=== PATIENT | female | born 2000 ===

== ENCOUNTER 2019-03-06 16:03 | Emergency (ER) | payer BC, OTHER ==
[2019-03-06 18:06] LABS: ABS Eosinophils 0.1 10^3/ul (0-0.6); ABS Lymphocytes 1.7 10^3/ul (1.0-4.8); ABS Monocytes 0.9 10^3/ul (0-0.8); ABS Neutrophils 4.5 10^3/ul (1.5-7.7); Eosinophil % 1.6 %; Hematocrit 36 % (35-47); Hemoglobin 12.6 g/dL (12.0-16.0); Lymphocyte % 23.2 %; Mean Corpuscular HGB Conc 35 g/dL (31-36); Mean Corpuscular Hemoglobin 33 pg (27-31); Mean Corpuscular Volume 94 fL (80-97); Mean Platelet Volume 8.5 fL (7.4-10.4); Nucleated Red Blood Cells % 0.1; Platelet Count 163 10^3/uL (150-450); Red Cell Distribution Width 13 % (10-15); White Blood Count 7.2 10^3/uL (3.5-10.8)
[2019-03-06 18:24] LABS: ALT 16 U/L (7-52); AST 20 U/L (13-39); Albumin 4.2 g/dL (3.2-5.2); Albumin/Globulin Ratio 1.6 (1-3); Alkaline Phosphatase 57 U/L (34-104); Anion Gap 5 mmol/L (2-11); BUN/Creatinine Ratio 16.4 (8-20); Blood Urea Nitrogen 12 mg/dL (6-24); C Reactive Protein 42.83 mg/L (<8.01); CO2 Carbon Dioxide 26 mmol/L (22-32); Calcium 8.8 mg/dL (8.6-10.3); Chloride 107 mmol/L (101-111); EGFR Non-African American 101.6 (>60); Globulin 2.6 g/dL (2-4); Glucose 100 mg/dL (70-100); Potassium 3.9 mmol/L (3.5-5.0); Sodium 138 mmol/L (135-145); Total Protein 6.8 g/dL (6.4-8.9)
[2019-03-06 18:30] LABS: HCG Pregnancy < 0.60 mIU/mL
--- NOTE | 2019-03-06 18:38 | ED ---
Abdominal Pain/Female - HPI Summary HPI Summary: 18 year old F arriving via private car complains of severe non-radiating constant RLQ abdominal pain since Sunday03/01/2019. Patient reports fever 100.5F yesterday 03/05/2019 PM and intermittent decreased appetite. Went to [facility] today 03/06/2019 and was referred to the ED. Patient denies chills , erythema of eyes, sore throat, chest pain, shortness of breath, cough, nausea/ vomiting, dysuria, hematuria, myalgia, edema, rash, or dizziness. Symptoms rated 5/10 in severity. Symptoms aggravated by nothing. Symptoms alleviated by nothing. Medications reviewed. Allergies noted. No abdominal surgeries. No hx ovarian cysts. LNMP 02/09/2019. No FHx appendicitis. - History of Current Complaint Chief Complaint: EDAbdPain Stated Complaint: RIGHT SIDE ABDOMINAL PAIN PER PT Time Seen by Provider: 03/06/19 17:34 Hx Obtained From: Patient Onset/Duration: Lasting Days - 6, Still Present Timing: Constant Severity Currently: Moderate Pain Intensity: 5 Pain Scale Used: 0-10 Numeric Location: Discrete At: RLQ Radiates: No Aggravating Factor(s): Nothing Alleviating Factor(s): Nothing Associated Signs and Symptoms: Positive: Negative - chills, erythema of eyes, sore throat, chest pain, shortness of breath, cough, nausea/vomiting, dysuria, hematuria, myalgia, edema, rash, or dizziness, Other: - fever, decreased appetite Allergies/Adverse Reactions: Allergies Allergy/AdvReac Type Severity Reaction Status Date / Time No Known Allergies Allergy Verified 03/06/19 16:05 Home Medications: Home Medications NK [No Home Medications Reported] 03/06/19 [History Confirmed 03/06/19] PMH/Surg Hx/FS Hx/Imm Hx Endocrine/Hematology History: Denies: Hx Diabetes Cardiovascular History: Denies: Hx Hypertension, Hx Pacemaker/ICD History: Denies: Hx Renal Disease Sensory History: Denies: Hx Hearing Aid Psychiatric History: Denies: Hx Panic Disorder - Surgical History Surgery Procedure, Year, and Place: EAR TUBES CHILD. wisdom teeth Infectious Disease History: No Infectious Disease History: Denies: Traveled Outside the [place] in Last 30 Days - Family History Known Family History: Positive: Other - NEG: appendicitis - Social History Alcohol Use: None Substance Use Type: Reports: None Smoking Status (MU): Never Smoked Tobacco Review of Systems Positive: Fever. Negative: Chills Negative: Erythema Negative: Sore Throat Negative: Chest Pain Negative: Shortness Of Breath, Cough Positive: Abdominal Pain - RLQ, Other - decreased appetite. Negative: Vomiting , Nausea Negative: dysuria, hematuria Negative: Myalgia, Edema Negative: Rash Neurological: Negative - Dizziness All Other Systems Reviewed And Are Negative: Yes Physical Exam - Summary Physical Exam Summary: Constitutional: Well-developed, Well-nourished, Alert. (-) Distressed Skin: Warm, Dry HENT: Normocephalic; Atraumatic Eyes: Conjunctiva normal Neck: Musculoskeletal ROM normal neck. (-) JVD, (-) Stridor, (-) Tracheal deviation Cardio: Rhythm regular, rate normal, Heart sounds normal; Intact distal pulses; The pedal pulses are 2+ and symmetric. Radial pulses are 2+ and symmetric. (-) Murmur Pulmonary/Chest wall: Effort normal. (-) Respiratory distress, (-) Wheezes, (-) Rales Abd: Soft, suprapubic and RLQ tenderness, (-) Distension, (-) Guarding, (-) Rebound Musculoskeletal: (-) Edema Lymph: (-) Cervical adenopathy Neuro: Alert, Oriented x3 Psych: Mood and affect Normal Triage Information Reviewed: Yes Vital Signs On Initial Exam: Initial Vitals Temp Pulse Resp BP Pulse Ox 97.5 F 69 15 94/66 100 03/06/19 16:04 03/06/19 16:04 03/06/19 16:04 03/06/19 16:04 03/06/19 16:04 Vital Signs Reviewed: Yes Procedures - Sedation Patient Received Moderate/Deep Sedation with Procedure: No Diagnostics - Vital Signs Vital Signs Temp Pulse Resp BP Pulse Ox 03/06/19 16:04 97.5 F 69 15 94/66 100 - Laboratory Lab Results: Lab Results 03/06/19 03/06/19 03/06/19 Range/Units 17:59 17:59 17:59 WBC 7.2 (3.5-10.8) 10^3/uL RBC 3.80 (3.70-4.87) 10^6 /uL Hgb 12.6 (12.0-16.0) g/dL Hct 36 (35-47) % MCV 94 (80-97) fL MCH 33 H (27-31) pg MCHC 35 (31-36) g/dL RDW 13 (10-15) % Plt Count 163 (150-450) 10^3/uL MPV 8.5 (7.4-10.4) fL Neut % (Auto) 62.5 % Lymph % (Auto) 23.2 % Karnes % (Auto) 12.1 % Eos % (Auto) 1.6 % Baso % (Auto) 0.6 % Absolute Neuts (auto) 4.5 (1.5-7.7) 10^3/ul Absolute Lymphs (auto) 1.7 (1.0-4.8) 10^3/ul Absolute Monos (auto) 0.9 H (0-0.8) 10^3/ul Absolute Eos (auto) 0.1 (0-0.6) 10^3/ul Absolute Basos (auto) 0.0 (0-0.2) 10^3/ul Absolute Nucleated RBC 0.0 10^3/ul Nucleated RBC % 0.1 Sodium 138 (135-145) mmol/L Potassium 3.9 (3.5-5.0) mmol/L Chloride 107 (101-111) mmol/L Carbon Dioxide 26 (22-32) mmol/L Anion Gap 5 (2-11) mmol/L BUN 12 (6-24) mg/dL Creatinine 0.73 (0.51-0.95) mg/dL Est GFR ( Amer) 123.0 (>60) Est GFR (Non-Af Amer) 101.6 (>60) BUN/Creatinine Ratio 16.4 (8-20) Glucose 100 (70-100) mg/dL Lactic Acid 0.8 (0.5-2.0) mmol/L Calcium 8.8 (8.6-10.3) mg/dL Total Bilirubin 0.30 (0.2-1.0) mg/dL AST 20 (13-39) U/L ALT 16 (7-52) U/L Alkaline Phosphatase 57 (34-104) U/L C-Reactive Protein 42.83 H (<8.01) mg/L Total Protein 6.8 (6.4-8.9) g/dL Albumin 4.2 (3.2-5.2) g/dL Globulin 2.6 (2-4) g/dL Albumin/Globulin Ratio 1.6 (1-3) Lipase 11 (11.0-82.0) U/L Beta HCG, Quant < 0.60 mIU/mL Result Diagrams: 03/06/19 17:59 03/06/19 17:59 Lab Statement: Any lab studies that have been ordered have been reviewed, and results considered in the medical decision making process. Abdominal Pain Fem Course/Dx - Course Course Of Treatment: 18 year old F complains of severe non-radiating constant RLQ abdominal pain since Sunday03/01/2019. Patient reports fever 100.5F yesterday 03/05/2019 PM and intermittent decreased appetite. Went to [facility] today 03/06/2019 and was referred to the ED. Patient denies chills, erythema of eyes, sore throat, chest pain, shortness of breath, cough, nausea/ vomiting, dysuria, hematuria, myalgia, edema, rash, or dizziness. No abdominal surgeries. No hx ovarian cysts. LNMP 02/09/2019. No FHx appendicitis. Upon exam, the patient has suprapubic and RLQ tenderness. Bloodwork results with no significant abnormalities except for MCH 33, absolute monos 0.9, CRP 42.83. In the ED course, the patient was given Tylenol 975 mg PO. Patient will be signed out to Dr. Estrella upon shift change 03/06/2019 1900 awaiting appendix ultrasound , transvaginal ultrasound, and pending disposition. - Diagnoses Provider Diagnoses: RLQ abdominal pain Discharge ED - Sign-Out/Discharge Documenting (check all that apply): Sign-Out Patient Signing out patient TO: Geovanna Estrella - awaiting appendix ultrasound, transvaginal ultrasound, and pending disposition - Discharge Plan Referrals: Kristie Bragg MD [Primary Care Provider] - - Attestation Statements Document Initiated by Scribe: Yes Documenting Scribe: Rossi Berumen Provider For Whom Scribe is Documenting (Include Credential): Alex Sauceda MD Scribe Attestation: Rossi Reno, scribed for Alex Sauceda MD on 03/06/19 at 1902. Status of Scribe Document: Ready
[2019-03-06] MEDS ORDERED: Acetaminophen TAB* 325 MG PO ONE (18:39)
[2019-03-06 18:55] LABS: Urine Appearance Cloudy; Urine Bilirubin Negative (Negative); Urine Blood Negative (Negative); Urine Color Yellow; Urine Glucose Negative (Negative); Urine Ketones Negative (Negative); Urine Nitrite Negative (Negative); Urine Protein Negative (Negative); Urine Specific Gravity 1.025 (1.010-1.030); Urine Urobilinogen Negative (Negative)
--- NOTE | 2019-03-06 19:13 | ED ---
Progress - Progress Note Progress Note: This pt is a sign out to Dr. Estrella from Dr. Sauceda at shift change 1900 2019 pending Transvaginal US, Appendix US, CT A/P, and disposition. - Results/Orders Results/Orders: Transvaginal US: 1. The left ovary measures 3.3 x 1.5 x 1.8 cm with normal Doppler flow. There is a complex likely hemorrhagic right ovarian cyst measuring a maximum of 4.3 cm. 2. There is a small volume of free fluid in the posterior pelvic cul-de-sac and right adnexa, cannot exclude ovarian cyst rupture. ED physician has reviewed this report. Appendix US: 1. The appendix was not visualized. 2. There is a prominent right lower quadrant mesenteric lymph node consistent with mesenteric adenitis. ED physician has reviewed this report. CT A/P: 1. The appendix is unremarkable. 2. There are borderline prominent right lower quadrant mesenteric lymph nodes consistent with mild mesenteric adenitis. 3. There is a likely hemorrhagic cyst of the right ovary measuring a maximum of 3.5 cm. ED physician has reviewed this report. Course/Dx - Course Course Of Treatment: This pt is a sign out to Dr. Estrella from Dr. Sauceda at shift change 1900 pending Transvaginal US, Appendix US, CT A/P, and disposition. patient feeling better. ct scan demonstrates mesenteric adenitis and right ovarian cyst. patient discharged ot home, follow up with PCP. follow up sooner for any worsening symptoms. - Diagnoses Provider Diagnoses: Mesenteric adenitis, Right ovarian cyst Discharge ED - Sign-Out/Discharge Documenting (check all that apply): Patient Departure - discharge - Discharge Plan Condition: Stable Disposition: HOME Patient Education Materials: Ovarian Cyst (ED), Mesenteric Adenitis (ED) Referrals: Kristie Bragg MD [Primary Care Provider] - 2 Days Additional Instructions: PLEASE FOLLOW UP WITH YOUR PRIMARY CARE PHYSICIAN IN 1-3 DAYS AND RETURN TO THE EMERGENCY DEPARTMENT FOR ANY NEW OR WORSENING SYMPTOMS. - Billing Disposition and Condition Condition: STABLE Disposition: Home - Attestation Statements Document Initiated by Scribe: Yes Documenting Scribe: Domingo Davies Provider For Whom Scribe is Documenting (Include Credential): Geovanna Estrella MD Scribe Attestation: Domingo Reno, scribed for Geovanna Estrella MD on 03/06/19 at 2242. Scribe Documentation Reviewed: Yes Provider Attestation: The documentation as recorded by the scribe, Domingo Davies accurately reflects the service I personally performed and the decisions made by me, Geovanna Estrella MD Status of Scribe Document: Viewed
[2019-03-06] MEDS ORDERED: Iohexol 300* (CONTRAST) 10 ML SDV IV ONE (19:40)
[2019-03-06 21:44] VITALS: BP 108/65
== END 2019-03-06 21:41 | disposition home or self-care (01) ==
LOC: ED 16:03
DX: R10.31 Right lower quadrant pain (principal)
CPT/HCPCS: 36415; 74177; 76705; 76830; 80053; 81003; 83605; 83690; 84702; 85025; 86140; 99283; A9270-GY; Q9967